=== PATIENT | male | born 1975 | race Caucasian/White ===

== ENCOUNTER → 2016-10-14 | Outpatient (CLI) | payer MEDICARE, MEDICAID ==
[2016-10-14 10:50] LABS: MEAN CORPUSCULAR VOLUME 86 FL (80-100); MEAN PLATELET VOLUME 8.3 FL (6.0-9.5); PLATELET COUNT 191 10^3uL (150-450); WHITE BLOOD COUNT 3.17 10^3uL (4.0-11.0)
[2016-10-14 10:51] LABS: MEAN CORPUSCULAR HEMOGLOBIN 31.4 PG (26.0-34.0); MEAN CORPUSCULAR HGB CONC 36.6 g/dL (31.0-37.0)
[2016-10-14 10:57] LABS: BAND NEUTROPHILS % 0 % (0-6); EOSINOPHILS % 6 % (0-4); LYMPHOCYTES # 0.9 #; MONOCYTES # 0.3 #; MONOCYTES % 10 % (3-11); RBC MORPH NORMAL (NORMAL); SEGMENTED NEUTROPHILS % 41 % (51-67); TOTAL CELLS COUNTED 100
[2016-10-14 12:23] LABS: ALBUMIN 4.2 g/dL (3.4-5.0); CALCULATED IONIZED CALCIUM 4.2 mg/dL (3.8-4.6); TOTAL PROTEIN 7.3 g/dL (6.4-8.5)
== END ==
LOC: LAB 10:31
PROVIDERS: ATTEND Internal Medicine
DX: Z00.00 Encounter for general adult medical examination without abnormal findings (principal); E78.4 Other hyperlipidemia; G40.909 Epilepsy, unspecified, not intractable, without status epilepticus
CPT/HCPCS: 36415; 80053; 80061; 84439; 84443; 85025

== ENCOUNTER → 2016-11-29 | Outpatient (CLI) | payer MEDICARE, MEDICAID | LOC: LAB 10:03 | PROVIDERS: ATTEND Internal Medicine | DX: G40.201 Localization-related (focal) (partial) symptomatic epilepsy and epileptic syndromes with complex partial seizures, not intractable, with status epilepticus (principal) | CPT/HCPCS: 36415; 80164 ==

== ENCOUNTER → 2017-01-18 | Outpatient (CLI) | payer MEDICARE, MEDICAID ==
[~2017-01-18] MED LIST: BNZT1T PO; CALC250T2 PO; CALC3.7S; CALCIUM CITRATE; CHOL10002 PO; CPR500T PO; DNPZ10T PO; DVL250TEC1 PO; DVL500TSR PO; LORA2TAB PO; OXB5T PO; PERP8TAB6 PO; SRTR100T PO; SULF-221 PO; UBID100C17 PO; VIT D3 PO; [UNRECOGNIZED DRUG - OTHER]
== END ==
LOC: EMS 01:40
PROVIDERS: ATTEND Family Medicine
DX: G25.2 Other specified forms of tremor (principal); R06.02 Shortness of breath; R44.2 Other hallucinations

== ENCOUNTER → 2017-01-27 | Outpatient (CLI) | payer MEDICARE, MEDICAID ==
[2017-01-27 15:25] LABS: ALBUMIN 4.3 g/dL (3.4-5.0); ANION GAP 14.9 MEQ/L (3-15)
== END ==
LOC: LAB 14:57
PROVIDERS: ATTEND Specialist
DX: M81.0 Age-related osteoporosis without current pathological fracture (principal)
CPT/HCPCS: 36415; 80069